=== PATIENT | female | born 1940 | race Caucasian/White ===

== ENCOUNTER 2018-02-19 00:33 | Emergency (ER) | payer MEDICARE, BC ==
[~2018-02-19] VITALS: Ht 165.1 cm; Wt 57.2 kg
--- NOTE | 2018-02-19 00:37 | NUR ---
DR ALEXANDREA BRICEÑO MD AT BEDSIDE FOR MSE.
[2018-02-19] MEDS ORDERED: IV NORMAL SALINE 500 ML BAG IV ONE (00:45)
--- NOTE | 2018-02-19 00:52 | NUR ---
LAB AT BEDSIDE FOR BLOOD DRAW.
[2018-02-19 00:58] LABS: BASOPHILS # (AUTO) 0.1 K/uL (0.0-8.0); BASOPHILS % (AUTO) 0.6 % (0.0-2.0); EOSINOPHILS # (AUTO) 0.1 K/uL (0.0-0.7); EOSINOPHILS % (AUTO) 0.8 % (0.0-7.0); HEMATOCRIT 35.8 % (31.2-41.9); HEMOGLOBIN 12.4 g/dL (10.9-14.3); LYMPHOCYTES # (AUTO) 1.2 K/uL (20.0-40.0); LYMPHOCYTES % (AUTO) 10.7 % (20.5-51.5); MEAN CORPUSCULAR HEMOGLOBIN 32.9 uug (24.7-32.8); MEAN CORPUSCULAR HGB CONC 35 g/dL (32.3-35.6); MEAN CORPUSCULAR VOLUME 94.8 fL (75.5-95.3); MONOCYTES # (AUTO) 1.4 K/uL (2.0-10.0); MONOCYTES % (AUTO) 13.3 % (0.0-11.0); NEUTROPHILS # (AUTO) 8.1 K/uL (1.8-8.9); NEUTROPHILS % (AUTO) 74.6 % (38.5-71.5); PLATELET COUNT (AUTO) 122 K/uL (179-408); RED BLOOD CELL COUNT(AUTO) 3.78 MIL/uL (3.63-4.92); WHITE BLOOD COUNT (AUTO) 10.8 K/uL (3.8-11.8)
--- NOTE | 2018-02-19 00:58 | NUR ---
RADIOLOGY AT BEDSIDE FOR CHEST XRAY.
[2018-02-19 01:13] LABS: CARBON DIOXIDE 28 mmol/L (21-32); CHLORIDE 102 mmol/L (98-107); CREATININE 0.8 mg/dL (0.6-1.3); GLUCOSE 119 mg/dL (74-106); POTASSIUM 3.4 mmol/L (3.5-5.1); UREA NITROGEN, BLOOD 17 mg/dL (7-18)
[2018-02-19 01:25] LABS: ALANINE AMINOTRANSFERASE 53 U/L (14-59); ALKALINE PHOSPHATASE 51 U/L (50-136); ASPARTATE AMINOTRANSFERASE 43 U/L (15-37); BILIRUBIN,DIRECT 0.1 mg/dL (0.0-0.2); BILIRUBIN,TOTAL 0.6 mg/dL (0.2-1.0); TOTAL PROTEIN, SERUM 6.2 g/dL (6.4-8.2)
--- NOTE | 2018-02-19 01:37 | NUR ---
PT TAKEN TO RADIOLOGY FOR CT. NO DISTRESS NOTED.
[2018-02-19] MEDS ORDERED: LEVOFLOXACIN 750MG/D5W 150 ML IV ONE (02:43)
[2018-02-19] MEDS ORDERED: LEVOFLOXACIN 750 MG/D5W 150 ML PIGGYBACK IV ONE (02:45)
--- NOTE | 2018-02-19 03:53 | NUR ---
Patient discharged to home in stable conditon. Written and verbal after care instructions given. Patient verbalizes understanding of instructions. Patient ambulated out of ER in steady gait. All belongings with pt. VSS. No acute distress noted. IV removed. Catheter intact and site benign. Pressure and 4x4 gauze applied to site. No bleeding noted. Pt's to drive home.
[2018-02-19 03:55] VITALS: BP 132/70
== END 2018-02-19 03:56 | disposition home or self-care (01) ==
LOC: ER 00:39
DX: J18.9 Pneumonia, unspecified organism (principal)
CPT/HCPCS: 36415; 70030-TC; 71045; 71250; 85025; 85730; 93005; A4663; J1956; J7040